=== PATIENT | male | born 1970 | race Caucasian/White ===

== ENCOUNTER 2022-07-11 05:34 | Emergency (ER) | payer SELFPAY ==
[~2022-07-11] VITALS: Ht 167.6 cm; Wt 74.8 kg
[2022-07-11] MEDS ORDERED: IV NORMAL SALINE 1000 ML BAG IV ONE (06:00)
[2022-07-11] MEDS ORDERED: HYDROMORPHONE 1 MG/1 ML DISP.SYRIN IV ONE ×2 (06:00→06:45)
[2022-07-11] MEDS ORDERED: PROCHLORPERAZINE EDISYLATE 10 MG/2 ML VIAL IV ONE (06:00)
--- NOTE | 2022-07-11 06:05 | NUR ---
Patient walked to ER with steady gait. NAD noted. Patient is a/ox4
[2022-07-11] MEDS ORDERED: PROC10TA29 PO (06:08)
[2022-07-11] MEDS ORDERED: OXYC-128 PO (06:08)
[2022-07-11] MEDS ORDERED: PROCHLORPERAZINE EDISYLATE 10 MG/2 ML VIAL ONE (06:11)
[2022-07-11] MEDS ORDERED: HYDROMORPHONE 2 MG/1 ML DISP.SYRIN ONE ×2 (06:11→06:34)
[2022-07-11 06:20] LABS: HEMATOCRIT 38.7 % (36.7-47.1); MEAN CORPUSCULAR HEMOGLOBIN 31.9 uug (23.8-33.4); MEAN CORPUSCULAR VOLUME 93.4 fL (73.0-96.2); PLATELET COUNT (AUTO) 202 K/uL (152-348)
--- NOTE | 2022-07-11 06:21 | NUR ---
Patient taken to CT
--- NOTE | 2022-07-11 06:29 | NUR ---
Patient is back from CT
[2022-07-11 06:30] LABS: CREATININE 0.8 mg/dL (0.6-1.3); POTASSIUM 3.8 mmol/L (3.5-5.1)
--- NOTE | 2022-07-11 06:50 | NUR ---
Patient does not wish to proceed with medical care recommended by Dr. Tate. Patient given information related to possible complications, up to and including , which could occur as a result of leaving the hospital at this time. Patient verbalizes understanding of risks involved due to leaving against medical advice. Patient has signed AMA form.
[2022-07-11 07:04] LABS: *BILIRUBIN,URIN NEGATIVE (NEGATIVE); *BLOOD, URINE NEGATIVE (NEGATIVE); *CLARITY,URINE CLEAR (CLEAR); *COLOR,URINE YELLOW (YELLOW); *KETONES,URINE NEGATIVE (NEGATIVE); *UROBILINOGEN,URINE 0.2 E.U./dl (NORMAL); LEUKOCYTE ESTERASE ,URINE NEGATIVE (NEGATIVE); NITRITE, URINE NEGATIVE (NEGATIVE); PH,URINE 7.5 (5.0-8.0); UGLUCOSE NEGATIVE (NEGATIVE)
[2022-07-11 07:08] VITALS: BP 140/82
== END 2022-07-11 06:50 | disposition left against medical advice (07) ==
LOC: ER 05:44
DX: K56.609 Unspecified intestinal obstruction, unspecified as to partial versus complete obstruction (principal); Z53.29 Procedure and treatment not carried out because of patient's decision for other reasons; Z88.6 Allergy status to analgesic agent; Z90.49 Acquired absence of other specified parts of digestive tract
CPT/HCPCS: 99285; 74176; 96374; 96375; 80048; 81003; 85025; 87086; 36415; J0780; J1170 ×2; J7040; A4663